=== PATIENT | female | born 1985 | race Hispanic/Latino ===

== ENCOUNTER 2019-01-17 12:35 | Emergency (ER) | payer SELFPAY ==
[~2019-01-17 12:35] MED LIST: Iopamidol 370 76% 100 ML VIAL ONE
[2019-01-17] MEDS ORDERED: Fentanyl 100 MCG/2 ML VIAL ONE (13:03)
[2019-01-17 13:21] LABS: #Lymphocytes 1.1 thou/uL (1.20-3.40); #Monocytes 0.5 thou/uL (0.11-0.59); #Neutrophils 8.9 thou/uL (1.40-6.50); %Basophils 0.4 % (0.0-1.0); %Eosinophils 0.3 % (0.0-10.0); %Lymphocytes 10.4 % (21.0-51.0); %Monocytes 4.2 % (0.0-10.0); %Neutrophils 84.7 % (42.0-75.0); Hemoglobin 12.4 g/dL (12.0-16.0); Mean Corpuscular HGB CONC 32.1 g/dL (32.0-36.0); Mean Corpuscular Hemoglobin 26.1 pg (27.0-31.0); Mean Corpuscular Volume 81.4 fL (78.0-98.0); Mean Platelet Volume 9.3 fL (7.4-10.4); Platelet Count 216 thou/uL (130-400); RBC Distribution Width 13.5 % (11.5-14.5); Red Blood Cell (RBC) Count 4.75 mill/uL (4.20-5.40); White Blood Cell (WBC) Count 10.6 thou/uL (4.8-10.8)
[2019-01-17 13:32] LABS: Anion Gap 14 mmol/L (10-20); BUN (Urea Nitrogen) 7 mg/dL (7.0-18.7); Calc. Creatinine Clearance 0 mL/min (70-130); Calcium 8.8 mg/dL (7.8-10.44); Carbon Dioxide 23 mmol/L (22-29); Chloride 106 mmol/L (98-107); Estimated GFR-MDRD Greater than 90; Glucose 100 mg/dL (70-105); Potassium 3.7 mmol/L (3.5-5.1); Sodium 139 mmol/L (136-145)
--- NOTE | 2019-01-17 14:10 | CT ---
FCT brain noncontrast: HISTORY: head trauma FINDINGS: There is no evidence of acute intra-axial or extra-axial hemorrhage. No mass effect, midline shift, o r extra-axial fluid collection. No evidence of obstructive hydrocephalus. Calvarium is intact. IMPRESSION: No acute intracranial findings.
--- NOTE | 2019-01-17 14:17 | CT ---
FCT thorax with contrast CT abdomen with contrast: CT pelvis with contrast: 01/17/2019 HISTORY: 36-year-old female status post acute trauma to the chest, abdomen, and pelvis FINDINGS: Thoracic and vertebral body heights are maintained with no evidence of compression fracture. No hendrix al fracture. No grossly displaced rib fracture aorta, bilateral kidneys, adrenals, pancreas, liver, s pleen, and urinary bladder, demonstrate no acute traumatic injury. No pelvic fracture or dislocation. No free fluid within the abdominal cavity or pelvic cavity. No pulmonary consolidation, contusion, o r edema. No pleural effusion or pneumothorax. IMPRESSION: Negative.
[2019-01-17] MEDS ORDERED: Ketorolac Tromethamine 30 MG/ML VIAL ONE (14:59)
[2019-01-17] MEDS ORDERED: Morphine 4 MG/ML VIAL ONE (14:59)
--- NOTE | 2019-01-17 15:06 | RAD ---
FRadiograph right knee 4 views: HISTORY: Traumatic injury FINDINGS: No fracture or dislocation. No joint effusion. IMPRESSION: Normal
--- NOTE | 2019-01-17 15:09 | RAD ---
FRadiograph left foot 3 views: HISTORY: Traumatic injury FINDINGS: No fracture or dislocation. IMPRESSION: Negative
== END 2019-01-17 15:40 | disposition home or self-care (01) ==
LOC: MADERS 12:35 → EDBD 12:35 → MADERS 15:40
DX: S42.022A Displaced fracture of shaft of left clavicle, initial encounter for closed fracture (principal); S80.211A Abrasion, right knee, initial encounter; V49.9XXA Car occupant (driver) (passenger) injured in unspecified traffic accident, initial encounter
CPT/HCPCS: 36415; 70450; 71260; 74177; 80048; 85025; 96374; 96375; G0390; J1885; J2270; J3010; Q9967